=== PATIENT | male | born 1990 | race Caucasian/White ===

== ENCOUNTER 2017-01-31 06:39 | Emergency (ER) | payer BC ==
[2017-01-31] MEDS ORDERED: Azithromycin 250 MG Tab PO ONE (07:05)
--- NOTE | 2017-01-31 07:05 | EDM.PDOC ---
ED HPI GENERAL MEDICAL PROBLEM - General Chief Complaint: ENT Problem Stated Complaint: POSSIBLE STREP THROAT Time Seen by Provider: 01/31/17 06:59 Source of Information: Reports: Patient History Limitations: Reports: No Limitations - History of Present Illness INITIAL COMMENTS - FREE TEXT/NARRATIVE: 26 yo male with no pmh presents to ED with concern that he may have strep throat. He woke up this morning with sore throat, increased salivation, low grade fever and cough. Cough is non-productive. He denies any sob, voice change , nausea, vomiting, diarrhea, dysuria, hematuria, neck pain or altered mentation. He is concerned bc his close frind recently had strep throat so he thinks he may have it to. He denies any medication use or tobacco use. He drinks alcohol rarely, less than once a month. Throat Pain Score (Numeric/FACES): 1 - Related Data Allergies Allergy/AdvReac Type Severity Reaction Status Date / Time amoxicillin Allergy Swelling Verified 01/31/17 06:43 Home Meds: Home Meds Azithromycin [IJD: Azithromycin] 250 mg PO DAILY 4 Days #4 tab 01/31/17 [Rx] Past Medical History HEENT History: Reports: None Cardiovascular History: Reports: None Respiratory History: Reports: None Gastrointestinal History: Reports: Bowel Obstruction Genitourinary History: Reports: None Musculoskeletal History: Reports: None Neurological History: Reports: None Psychiatric History: Reports: None Endocrine/Metabolic History: Reports: None Hematologic History: Reports: None Immunologic History: Reports: None Oncologic (Cancer) History: Reports: None Dermatologic History: Reports: None - Past Surgical History Head Surgeries/Procedures: Reports: None HEENT Surgical History: Reports: Other (See Below) Other HEENT Surgeries/Procedures: wisdom teeth Cardiovascular Surgical History: Reports: None Respiratory Surgical History: Reports: None GI Surgical History: Reports: None Male Surgical History: Reports: None Endocrine Surgical History: Reports: None Neurological Surgical History: Reports: None Musculoskeletal Surgical History: Reports: None Oncologic Surgical History: Reports: None Social & Family History - Family History Family Medical History: Noncontributory - Tobacco Use Smoking Status *Q: Never Smoker - Caffeine Use Caffeine Use: Reports: Coffee - Recreational Drug Use Recreational Drug Use: No ED ROS ENT - Review of Systems Review Of Systems: See Below Constitutional: Reports: Fever, Chills, Malaise HEENT: Reports: Throat Pain Respiratory: Reports: Cough Cardiovascular: Reports: No Symptoms Endocrine: Reports: No Symptoms GI/Abdominal: Reports: No Symptoms : Reports: No Symptoms Musculoskeletal: Reports: No Symptoms Skin: Reports: No Symptoms Neurological: Reports: No Symptoms Psychiatric: Reports: No Symptoms Hematologic/Lymphatic: Reports: No Symptoms Immunologic: Reports: No Symptoms ED EXAM, ENT - Physical Exam Exam: See Below Exam Limited By: No Limitations General Appearance: Alert, WD/WN, No Apparent Distress Eye Exam: Bilateral Eye: PERRL Ears: Normal External Exam, Normal Canal, Hearing Grossly Normal, Normal TMs Nose: Normal Inspection, Normal Mucousa, No Blood Mouth/Throat: Normal Inspection, Normal Gums, Normal Lips, Normal Oropharynx, Pharyngeal Erythema Head: Atraumatic, Normocephalic Neck: Lymphadenopathy (L), Lymphadenopathy (R) Respiratory/Chest: No Respiratory Distress, Lungs Clear, Normal Breath Sounds, No Accessory Muscle Use, Chest Non-Tender Cardiovascular: Normal Peripheral Pulses, Regular Rate, Rhythm, No Edema, No Gallop, No JVD, No Murmur, No Rub GI/Abdominal: Normal Bowel Sounds, Soft, Non-Tender, No Organomegaly, No Distention Extremities: Normal Inspection, Normal Range of Motion, Non-Tender, No Pedal Edema, Normal Capillary Refill Neurological: Alert, Oriented, CN II-XII Intact, Normal Reflexes Psychiatric: Normal Affect, Normal Mood Skin: Warm, Dry, Intact Course - Vital Signs Last Recorded V/S: Last Vital Signs Temp 36.5 C 01/31/17 06:44 Pulse 57 L 01/31/17 06:44 Resp 18 01/31/17 06:44 BP 132/62 01/31/17 06:44 Pulse Ox 97 01/31/17 06:44 - Orders/Labs/Meds Meds: Medications Discontinued Medications Generic Name Dose Route Start Last Admin Trade Name Freq PRN Reason Stop Dose Admin Azithromycin 500 mg 01/31/17 07:05 Zithromax PO 01/31/17 07:06 Q24H ONE Departure - Departure Time of Disposition: 07:19 Disposition: Home, Self-Care 01 Clinical Impression: Pharyngitis - Discharge Information Prescriptions: Azithromycin [IJD: Azithromycin] 250 mg PO DAILY 4 Days #4 tab Referrals: PCP,None [Primary Care Provider] - Forms: ED Department Discharge Additional Instructions: The following information is given to patients seen in the emergency department who are being discharged to home. This information is to outline your options for follow-up care. We provide all patients seen in our emergency department with a follow-up referral. The need for follow-up, as well as the timing and circumstances, are variable depending upon the specifics of your emergency department visit. If you don't have a primary care physician on staff, we will provide you with a referral. We always advise you to contact your personal physician following an emergency department visit to inform them of the circumstance of the visit and for follow-up with them and/or the need for any referrals to a consulting specialist. The emergency department will also refer you to a specialist when appropriate. This referral assures that you have the opportunity for followup care with a specialist. All of these measure are taken in an effort to provide you with optimal care, which includes your followup. Under all circumstances we always encourage you to contact your private physician who remains a resource for coordinating your care. When calling for followup care, please make the office aware that this follow-up is from your recent emergency room visit. If for any reason you are refused follow-up, please contact the [facility] emergency department at and asked to speak to the emergency department charge nurse. - Problem List Review Problem List Initiated/Reviewed/Updated: Yes - Assessment/Plan Plan: diagnostics: differed therapeutics: Azithromycin 500 mg PO single dose assessment: Acute Pharyngitis Plan: Provided patient with prescription for Azithromycin 250 mg PO daily for 4 days which he is to start taking tomorrow. He received the first dose in the ED today. Educated him on natural course of condition. Discussed medication prescribed and associated side effects. He is in agreement with plan. Reccomended for him to f/u with PCP.
== END 2017-01-31 07:25 | disposition home or self-care (01) ==
LOC: MW.ED 06:39
DX: J02.9 Acute pharyngitis, unspecified (principal); Z88.1 Allergy status to other antibiotic agents
CPT/HCPCS: 99282; A9270; 99283

== ENCOUNTER 2017-02-02 16:55 | Emergency (ER) | payer BC ==
[2017-02-02] MEDS ORDERED: Diphtheria,Pertussis(Acell),Tetanus Vaccine 0.5 ML Syringe IM ONE (17:15)
[2017-02-02] MEDS ORDERED: Ketorolac 60 MG/2 ML SDV IM ONE (17:25)
--- NOTE | 2017-02-02 17:32 | EDM.PDOC ---
ED HPI GENERAL MEDICAL PROBLEM - General Chief Complaint: Upper Extremity Injury/Pain Stated Complaint: smashed left thumb Time Seen by Provider: 02/02/17 17:02 Source of Information: Reports: Patient History Limitations: Reports: No Limitations - History of Present Illness INITIAL COMMENTS - FREE TEXT/NARRATIVE: HISTORY AND PHYSICAL: History of present illness: Patient is a 26-year-old male who presents to the emergency room today with complaints of left thumb pain. He states he was using a hammer to put up [place] lights and smashed his left thumb. There is some blood collecting under the nailbed, states it's throbbing and can feel pain going up into his wrist. Does have full range of motion and no open skin/bleeding. Good strong radial pulses. Injuring the hand or wrist. Unsure of his last tetanus. Review of systems: As per history of present illness and below otherwise all systems reviewed and negative. Past medical history: As per history of present illness and as reviewed below otherwise noncontributory. Surgical history: As per history of present illness and as reviewed below otherwise noncontributory. Social history: No reported history of drug or alcohol abuse. Family history: As per history of present illness and as reviewed below otherwise noncontributory. Physical exam: Gen.: Nontoxic appearing 26-year-old male. Alert and oriented. Appears in no acute distress. HEENT: Atraumatic, normocephalic, pupils reactive, negative for conjunctival pallor or scleral icterus, mucous membranes moist, throat clear, neck supple, nontender, trachea midline. Lungs: Clear to auscultation, breath sounds equal bilaterally, chest nontender. Heart: S1S2, regular, negative for clicks, rubs, or JVD. Abdomen: Soft, nondistended, nontender. Negative for masses or hepatosplenomegaly. Negative for costovertebral tenderness. Pelvis: Stable nontender. Genitourinary: Deferred. Rectal: Deferred. Extremities/skin: Full range of motion to the left thumb with good flexion and dorsi-flexion. Collection of blood under the left medial nail bed, thumb. Neurovascular unremarkable. Neuro: Awake, alert, oriented. Cranial nerves II through XII unremarkable. Cerebellum unremarkable. Motor and sensory unremarkable throughout. Exam nonfocal. X-ray shows no fracture of the left thumb. A cautery pen was used to release some of the pressure/hematoma under the left thumb. A nonstick dressing was placed on top. Will give patient 10 tablets of tramadol 50 mg, no refills. Diagnostics: X-ray Therapeutics: Tdap, Toradol IM Impression: Crush injury Subungal Hematoma Plan: 1. Please use the pain medication as directed. Do not take this while driving or needing to be functioning at work, as it may cause drowsiness. He may take Tylenol and/or ibuprofen as needed in a junction to this prescription. Rest, ice , and elevate for the next 2-3 days. 2. Today the hematoma was drained, please expect more her next coming from the nail as the pressure releases. As we discussed please monitor for signs of infection. 3. Follow-up with your primary care provider in the next 1-2 days. Work or so if your digit continues to be bothersome. May return to the ED as needed and as discussed. Definitive disposition and diagnosis as appropriate pending reevaluation and review of above. Onset: Today Duration: Hour(s): Location: Reports: Lower Extremity, Left Left 1-Thumb Pain Score (Numeric/FACES): 6 - Related Data Allergies Allergy/AdvReac Type Severity Reaction Status Date / Time amoxicillin Allergy Swelling Verified 02/02/17 17:08 Home Meds: Home Meds Azithromycin [IJD: Azithromycin] 250 mg PO DAILY 4 Days #4 tab 01/31/17 [Rx] Past Medical History HEENT History: Reports: None Cardiovascular History: Reports: None Respiratory History: Reports: None Gastrointestinal History: Reports: Bowel Obstruction Genitourinary History: Reports: None Musculoskeletal History: Reports: None Neurological History: Reports: None Psychiatric History: Reports: None Endocrine/Metabolic History: Reports: None Hematologic History: Reports: None Immunologic History: Reports: None Oncologic (Cancer) History: Reports: None Dermatologic History: Reports: None - Infectious Disease History Infectious Disease History: Reports: Chicken Pox - Past Surgical History Head Surgeries/Procedures: Reports: None HEENT Surgical History: Reports: Other (See Below) Other HEENT Surgeries/Procedures: wisdom teeth Cardiovascular Surgical History: Reports: None Respiratory Surgical History: Reports: None GI Surgical History: Reports: None Male Surgical History: Reports: None Endocrine Surgical History: Reports: None Neurological Surgical History: Reports: None Musculoskeletal Surgical History: Reports: None Oncologic Surgical History: Reports: None Social & Family History - Family History Family Medical History: Noncontributory - Tobacco Use Smoking Status *Q: Never Smoker - Caffeine Use Caffeine Use: Reports: Coffee - Recreational Drug Use Recreational Drug Use: No Review of Systems - Review of Systems Review Of Systems: ROS reveals no pertinent complaints other than HPI. ED EXAM, GENERAL - Physical Exam Exam: See Below (See dictation) Course - Vital Signs Last Recorded V/S: Last Vital Signs Temp 36.9 C 02/02/17 17:08 Pulse 76 02/02/17 17:08 Resp 18 02/02/17 17:08 BP 135/72 02/02/17 17:08 Pulse Ox 98 02/02/17 17:08 - Orders/Labs/Meds Orders: Active Orders 24 hr Category Date Time Status Communication Order [RC] STAT Care 02/02/17 17:43 Ordered Vaccines to be Administered [RC] PER UNIT ROUTINE Care 02/02/17 17:15 Active Fingers Thumb Lt FA [CR] Stat Exams 02/02/17 17:03 Taken Meds: Medications Discontinued Medications Generic Name Dose Route Start Last Admin Trade Name Lexx PRN Reason Stop Dose Admin Diphtheria/Tetanus/Acell Pertussis 0.5 ml 02/02/17 17:15 02/02/17 17:24 Adacel IM 02/02/17 17:16 0.5 ml .ONCE ONE Administration Ketorolac Tromethamine 60 mg 02/02/17 17:25 02/02/17 17:36 Toradol IM 02/02/17 17:26 60 mg ONETIME ONE Administration Departure - Departure Time of Disposition: 17:43 Disposition: Home, Self-Care 01 Clinical Impression: Crush injury, Subungual hematoma - Discharge Information Referrals: Ludmila Paulson DO [Primary Care Provider] - Forms: ED Department Discharge Additional Instructions: My general discharge The following information is given to patients seen in the emergency department who are being discharged to home. This information is to outline your options for follow-up care. We provide all patients seen in our emergency department with a follow-up referral. The need for follow-up, as well as the timing and circumstances, are variable depending upon the specifics of your emergency department visit. If you don't have a primary care physician on staff, we will provide you with a referral. We always advise you to contact your personal physician following an emergency department visit to inform them of the circumstance of the visit and for follow-up with them and/or the need for any referrals to a consulting specialist. The emergency department will also refer you to a specialist when appropriate. This referral assures that you have the opportunity for follow-up care with a specialist. All of these measure are taken in an effort to provide you with optimal care, which includes your follow-up. Under all circumstances we always encourage you to contact your private physician who remains a resource for coordinating your care. When calling for follow-up care, please make the office aware that this follow-up is from your recent emergency room visit. If for any reason you are refused follow-up, please contact the [facility] Emergency Department at and asked to speak to the emergency department charge nurse. [facility] [address], [address] [place] [address] 1. Please use the pain medication as directed. Do not take this while driving or needing to be functioning at work, as it may cause drowsiness. He may take Tylenol and/or ibuprofen as needed in a junction to this prescription. Rest, ice , and elevate for the next 2-3 days. 2. Today the hematoma was drained, please expect more her next coming from the nail as the pressure releases. As we discussed please monitor for signs of infection. 3. Follow-up with your primary care provider in the next 1-2 days. Work or so if your digit continues to be bothersome. May return to the ED as needed and as discussed. - My Orders Last 24 Hours: My Active Orders 02/02/17 17:03 Fingers Thumb Lt FA [CR] Stat 02/02/17 17:15 Vaccines to be Administered [RC] PER UNIT ROUTINE 02/02/17 17:43 Communication Order [RC] STAT - Assessment/Plan Last 24 Hours: My Active Orders 02/02/17 17:03 Fingers Thumb Lt FA [CR] Stat 02/02/17 17:15 Vaccines to be Administered [RC] PER UNIT ROUTINE 02/02/17 17:43 Communication Order [RC] STAT
--- NOTE | 2017-02-03 10:08 | CR ---
EXAM DATE: 02/02/17 PATIENT'S AGE: 26 Patient: MADDISON ALFRED Facility: [place], [place] Site . Site : 1990 Study: XRay Extremity thumb [id number] 5:21:33 PM Ordering Physician: Doctor Perez Final Report: HISTORY: Crush injury, hit thumb with hammer. FINDINGS: Three views of the left thumb demonstrates normal bone mineralization. There is normal alignment present. No fracture line is identified. IMPRESSION: No fracture identified within the left thumb. Dictated by Donna Ayon MD @ 02/02/2017 5:39:21 PM Dictated by: Donna Ayon MD @ 02/02/2017 17:39:25 (Electronic Signature) Report Signed by Proxy. [facility] MED[facility] CENTERBrenda
== END 2017-02-02 18:05 | disposition home or self-care (01) ==
LOC: MW.ED 16:55
DX: S67.02XA Crushing injury of left thumb, initial encounter (principal); S60.112A Contusion of left thumb with damage to nail, initial encounter; Z88.1 Allergy status to other antibiotic agents; W23.1XXA Caught, crushed, jammed, or pinched between stationary objects, initial encounter
CPT/HCPCS: 11740; 73140; 90471; 90715; 96372; 99283; J1885

== ENCOUNTER 2020-10-20 20:19 | Emergency (ER) | payer BC, OTHER ==
[2020-10-20] MEDS ORDERED: Sulfamethoxazole/Trimethoprim 800-160 MG Tab PO ONE (20:56)
[2020-10-20] MEDS ORDERED: Bacitracin Oint 1 GM U/D Packet TOP ONE (21:01)
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
== END 2020-10-20 21:26 | disposition home or self-care (01) ==
LOC: MW.ED 20:19
DX: T25.231A Burn of second degree of right toe(s) (nail), initial encounter (principal); T25.232A Burn of second degree of left toe(s) (nail), initial encounter; Z88.0 Allergy status to penicillin; X19.XXXA Contact with other heat and hot substances, initial encounter
CPT/HCPCS: 16020; 99283; A9270